=== PATIENT | female | born 1960 | race Caucasian/White ===

== ENCOUNTER 2017-10-04 15:14 | Inpatient (IN) | payer OTHER ==
[~2017-10-04] VITALS: Ht 167.6 cm; Wt 105.2 kg
[2017-10-04] MEDS ORDERED: DILTIAZEM HCL 25 MG/5 ML VIAL IV ONE (15:45)
[2017-10-04] MEDS ORDERED: ASPirin 81 mg TAB PO ONE (15:45)
[2017-10-04 16:30] LABS: Alanine Aminotransferase 68 U/L (13-56); Albumin 3.6 g/dL (3.4-5.0); Anion Gap 7 (5-15); Aspartate Aminotransferase 23 U/L (15-37); BUN/Creatinine Ratio 14.3; Blood Urea Nitrogen 12 mg/dL (7-18); Calcium 8.9 mg/dL (8.5-10.1); Carbon Dioxide 23 mmol/L (21-32); Chloride 113 mmol/L (98-107); GFR African American 90 mL/min; GFR Non-African American 75 mL/min; Glucose 103 mg/dL (74-106); Magnesium 2.1 mg/dL (1.6-2.6); Potassium 3.4 mmol/L (3.5-5.1); Sodium 143 mmol/L (136-145)
[2017-10-04 16:34] LABS: Alkaline Phosphatase 95 U/L (45-117); Bilirubin, Total 0.9 mg/dL (0.2-1.0); Total Protein 6.7 g/dL (6.4-8.2)
[2017-10-04] MEDS ORDERED: FUROSEMIDE 40 MG/4 ML VIAL IV ONE (16:45)
[2017-10-04 17:00] LABS: Basophils # (auto) 0 uL; Basophils % (auto) 0.3 % (0.0-2.0); Eosinophils # (auto) 0.1 uL; Eosinophils % (auto) 1.3 % (0.0-7.0); Hematocrit 41.5 % (36.0-46.0); Hemoglobin 13.6 g/dL (12.2-16.2); Lymphocytes # (auto) 2.1 uL; Lymphocytes % (auto) 22.8 % (10.0-50.0); Mean Corpuscular Hemoglobin 30.3 pg (28.0-32.0); Mean Corpuscular Hgb Conc. 32.7 g/dL (32.0-36.0); Mean Corpuscular Volume 92.6 fL (80.0-100.0); Monocytes # (auto) 0.4 uL; Monocytes % (auto) 4.6 % (0.0-12.0); Neutrophils # (auto) 6.5 uL; Platelet Count (auto) 270 10^3/uL (140-450); Red Blood Cells 4.48 10^6/uL (4.0-5.20); Red Cell Distribution Width 15.1 % (11.8-14.3); White Blood Cell 9.1 10^3/uL (4.4-10.8)
[2017-10-04] MEDS ORDERED: DIGOXIN 0.25 MG TAB PO ONE (17:00)
[2017-10-04] MEDS ORDERED: NITROGLYCERIN 0.4 MG SL TAB SL PRN (20:45)
[2017-10-04] MEDS ORDERED: ACETAMINOPHEN 325 MG TAB PO PRN (20:45)
[2017-10-04] MEDS ORDERED: DOCUSATE SOD 100 MG CAP PO PRN (20:45)
[2017-10-04] MEDS ORDERED: POTASSIUM CHL 20 Meq TABLET PO ONE (20:45)
[2017-10-04] MEDS ORDERED: TEMAZEPAM 15 MG CAP PO PRN (20:45)
[2017-10-04] MEDS ORDERED: METOPROLOL TARTRATE 25 MG TAB PO ONE ×2 (20:45→22:45)
[2017-10-04] MEDS ORDERED: HYDROcodone-ACET 5/325MG TAB PO PRN (20:45)
[2017-10-04] MEDS ORDERED: MORPHINE SULFATE 4 MG/ML SYR/VIAL IV PRN (20:45)
[2017-10-04] MEDS ORDERED: LEVOFLOXACIN 750MG 150 ML IV ONE (20:45)
[2017-10-04] MEDS ORDERED: ACETAMINOPHEN 325 MG TAB PO ONE (21:00)
[2017-10-04] MEDS: ENOXAPARIN SOD 40 MG/0.4 ML SYRINGE SC SCH (21:47)
[2017-10-04] MEDS: FAMOTIDINE 20 MG TAB PO SCH (22:08)
[2017-10-04] MEDS ORDERED: LABETALOL HCL 5 MG/ML ML 20ML VIAL IV ONE (22:30)
[2017-10-05] MEDS: ONDANSETRON HCL 4 MG/2 ML VIAL IV PRN ×2 (00:48→01:19)
[2017-10-05] MEDS ORDERED: SODIUM CHLORIDE 0.9% 250 ML IV ONE (01:15)
[2017-10-05 07:41] LABS: Basophils # (auto) 0 uL; Basophils % (auto) 0.7 % (0.0-2.0); Eosinophils # (auto) 0.1 uL; Eosinophils % (auto) 1.7 % (0.0-7.0); Hematocrit 41.8 % (36.0-46.0); Hemoglobin 13.7 g/dL (12.2-16.2); Lymphocytes # (auto) 1.4 uL; Lymphocytes % (auto) 26.4 % (10.0-50.0); Mean Corpuscular Hemoglobin 29.6 pg (28.0-32.0); Mean Corpuscular Hgb Conc. 32.7 g/dL (32.0-36.0); Mean Corpuscular Volume 90.5 fL (80.0-100.0); Monocytes # (auto) 0.3 uL; Monocytes % (auto) 6.1 % (0.0-12.0); Neutrophils # (auto) 3.5 uL; Neutrophils % (auto) 65.1 % (37.0-80.0); Nucleated Red Blood Cells % 0.1 %; Platelet Count (auto) 252 10^3/uL (140-450); Red Blood Cells 4.62 10^6/uL (4.0-5.20); Red Cell Distribution Width 14.7 % (11.8-14.3); White Blood Cell 5.4 10^3/uL (4.4-10.8)
[2017-10-05 08:07] LABS: Albumin 3.4 g/dL (3.4-5.0); BUN/Creatinine Ratio 13.4; Calcium 8.9 mg/dL (8.5-10.1); Potassium 4.4 mmol/L (3.5-5.1)
[2017-10-05 08:16] LABS: Bilirubin, Total 0.9 mg/dL (0.2-1.0); Total Protein 6.6 g/dL (6.4-8.2)
[2017-10-05] MEDS ORDERED: FUROSEMIDE 20 MG TAB PO SCH (10:00)
[2017-10-05] MEDS ORDERED: ASPirin 81 mg TAB PO SCH (10:00)
[2017-10-05] MEDS: METOPROLOL TARTRATE 25 MG TAB PO SCH ×3 (10:30→23:45)
[2017-10-05] MEDS: FAMOTIDINE 20 MG TAB PO SCH ×2 (10:30→23:39)
[2017-10-05] MEDS: ENOXAPARIN SOD 40 MG/0.4 ML SYRINGE SC SCH (10:30)
[2017-10-05] MEDS: LEVOFLOXACIN 750MG 150 ML IV SCH (10:30)
[2017-10-05 11:25] VITALS: BP 101/84
[2017-10-05] MEDS ORDERED: POTASSIUM CHL 20MEQ/100ML 100 ML IV ONE (14:00)
[2017-10-05] MEDS ORDERED: cefTRIAXone 1GM/10ml IVPUSH 10 ML IV ONE (14:45)
[2017-10-05] MEDS: DIGOXIN (250MCG/ML) 2 ML AMPULE IV ONE ×2 (16:15→17:51)
[2017-10-05] MEDS ORDERED: IOHEXOL 350 MG/ML 100ML IJ ONE (16:23)
[2017-10-05 17:16] VITALS: BP 125/93
[2017-10-05 20:00] VITALS: BP 101/47
[2017-10-05 22:00] VITALS: BP 101/47
[2017-10-05] MEDS ORDERED: DIGOXIN (250MCG/ML) 2 ML AMPULE IV ONE (23:00)
[2017-10-05] MEDS: AMIODARONE HCL 200 MG TAB PO SCH (23:42)
[2017-10-06 05:00] VITALS: BP 121/80
[2017-10-06 07:31] VITALS: BP 137/84
[2017-10-06] MEDS ORDERED: cefTRIAXone 1GM/10ml IVPUSH 10 ML IV SCH (09:00)
[2017-10-06] MEDS ORDERED: FUROSEMIDE 20 MG/2 ML VIAL IV SCH (10:00)
[2017-10-06] MEDS: ENOXAPARIN SOD 40 MG/0.4 ML SYRINGE SC SCH (10:00)
[2017-10-06] MEDS ORDERED: ASPirin 325 MG TAB PO SCH (10:00)
[2017-10-06] MEDS: AMIODARONE HCL 200 MG TAB PO SCH (10:02)
[2017-10-06] MEDS: FAMOTIDINE 20 MG TAB PO SCH (10:02)
[2017-10-06] MEDS: METOPROLOL TARTRATE 25 MG TAB PO SCH (10:03)
[2017-10-06] MEDS: LEVOFLOXACIN 750MG 150 ML IV SCH (10:04)
[2017-10-06 12:17] VITALS: BP 133/85
[2017-10-06] MEDS ORDERED: PATIENTS OWN MEDICATION (xarelto 20 MG) PO SCH (17:00)
[2017-10-06 17:03] VITALS: BP 134/94
[2017-10-06 17:11] VITALS: BP 134/94
[2017-10-07] MEDS ORDERED: RIVAROXABAN 20 MG TAB PO SCH (10:00)
== END 2017-10-06 19:40 | disposition short-term general hospital (02) | DRG 308 ==
LOC: ER 15:14 → TELE 15:15 → TELE-CENTR 10-05 15:57
PROVIDERS: ADMIT Nurse Practitioner; ATTEND Family Medicine
DX: I48.91 Unspecified atrial fibrillation (principal); I50.33 Acute on chronic diastolic (congestive) heart failure; J18.9 Pneumonia, unspecified organism; M19.90 Unspecified osteoarthritis, unspecified site; E66.9 Obesity, unspecified; F32.9 Major depressive disorder, single episode, unspecified; Z79.82 Long term (current) use of aspirin; Z79.899 Other long term (current) drug therapy; Z88.2 Allergy status to sulfonamides; Z68.37 Body mass index [BMI] 37.0-37.9, adult
CPT/HCPCS: 36415; 71045; 71275; 80053; 83735; 83880; 84443; 84484; 85025; 93005; 93306; 96374; 99291; J1956; J2405